=== PATIENT | male | born 1960 | race Caucasian/White ===

== ENCOUNTER → 2017-03-29 | Outpatient (CLI) | payer MEDICARE | END | disposition home or self-care (01) | LOC: ROC 11:15 | PROVIDERS: ATTEND Radiology Radiation Oncology | DX: C75.1 Malignant neoplasm of pituitary gland (principal) | CPT/HCPCS: G0463 ==

== ENCOUNTER 2019-04-11 09:06 | Outpatient (CLI) | payer MEDICARE | END 2019-04-11 23:59 | disposition home or self-care (01) | LOC: ROC 09:06 | PROVIDERS: ATTEND Radiology Radiation Oncology | DX: Z09 Encounter for follow-up examination after completed treatment for conditions other than malignant neoplasm (principal); Z86.011 Personal history of benign neoplasm of the brain; G89.29 Other chronic pain; M54.9 Dorsalgia, unspecified; Z98.890 Other specified postprocedural states | CPT/HCPCS: G0463 ==